=== PATIENT | male | born 1950 | race Caucasian/White ===

== ENCOUNTER → 2024-01-05 06:32 | Day surgery (SDC) | payer MEDICARE, OTHER, SELFPAY | LOC: GI 06:32 | PROVIDERS: ATTENDING PHYSICIAN Internal Medicine Gastroenterology | DX: Z12.11 Encounter for screening for malignant neoplasm of colon (principal); C18.2 Malignant neoplasm of ascending colon; K57.30 Diverticulosis of large intestine without perforation or abscess without bleeding; K64.8 Other hemorrhoids; Z86.010 Personal history of colon polyps; Z15.09 Genetic susceptibility to other malignant neoplasm | CPT/HCPCS: 45385; 45381; 88305; 88342 ==

== ENCOUNTER → 2024-05-19 07:30 | Outpatient (REF) | payer MEDICARE, OTHER, SELFPAY | LOC: HWRAD 07:30 | PROVIDERS: ATTENDING PHYSICIAN Student in an Organized Health Care Education/Training Program; FAMILY PHYSICIAN Family Medicine | DX: M19.071 Primary osteoarthritis, right ankle and foot (principal) | CPT/HCPCS: 73700 ==

== ENCOUNTER → 2024-06-16 06:32 | Outpatient (REF) | payer MEDICARE, OTHER, SELFPAY ==
[2024-06-16 08:46] LABS: Hematocrit 37.1 % (39.0-52.0); Hemoglobin 12.4 g/dL (13.0-18.0); Mean Corp Hgb Conc. 33.4 g/dL (33.0-37.0); Mean Corpuscular Hgb 28.9 pg (27.0-31.0); Mean Corpuscular Volume 86.5 fL (80.0-94.0); Mean Platelet Volume 12.6 fL (7.4-10.4); Platelet Count 164 10^3/uL (130-400); Red Blood Cell Count 4.29 10^6/uL (4.70-6.10); Red Cell Dist. Width 14.2 % (11.5-14.5); White Blood Cell Count 7.2 10^3/uL (4.8-10.8)
[2024-06-16 10:28] LABS: Blood Urea Nitrogen 26 mg/dl (9-20); Calcium 9.5 mg/dl (8.4-10.2); Carbon Dioxide 27 mmol/L (22-30); Chloride 108 mmol/L (98-107); Glucose 82 mg/dl (70-99); Sodium 147 mmol/L (135-145); eGFR > 60.00
== END ==
LOC: SDSPAT 06:32
PROVIDERS: ATTENDING PHYSICIAN Student in an Organized Health Care Education/Training Program; FAMILY PHYSICIAN Family Medicine
DX: Z01.818 Encounter for other preprocedural examination (principal)
CPT/HCPCS: 80048; 85027

== ENCOUNTER 2024-07-18 06:16 | Day surgery (SDC) | payer MEDICARE, OTHER, SELFPAY ==
[2024-06-16 10:37] VITALS: BMI 27.7
[2024-07-18] VITALS (9 sets, daily range): BP systolic 116–166; BP diastolic 71–91; BMI 27.7
[2024-07-18] MEDS: CELEBREX 200 MG PO (07:43)
[2024-07-18] MEDS: TYLENOL 1000 MG PO (07:44)
[2024-07-18] MEDS: NORMOSOL-R/PLASMALYTE-A 1000 IV (07:44)
[2024-07-18] MEDS: SUBLIMAZE 50 MCG IV (11:55)
[2024-07-18] MEDS: SUBLIMAZE 25 MCG IV (12:06)
[2024-07-18] MEDS: ROXICODONE 5 MG PO (13:33)
== END 2024-07-18 14:00 | disposition home or self-care (01) ==
LOC: SDS 06:16
PROVIDERS: ATTENDING PHYSICIAN Student in an Organized Health Care Education/Training Program; FAMILY PHYSICIAN Family Medicine
DX: M19.071 Primary osteoarthritis, right ankle and foot (principal)
CPT/HCPCS: 27702; 28289; 73610; 76000; C1713; C1776

== ENCOUNTER 2025-09-04 06:17 | Day surgery (SDC) | payer MEDICARE, OTHER, SELFPAY | END 2025-09-04 11:37 | disposition home or self-care (01) | LOC: GI 06:17 | PROVIDERS: ATTENDING PHYSICIAN Internal Medicine Gastroenterology | DX: Z12.11 Encounter for screening for malignant neoplasm of colon (principal); K64.8 Other hemorrhoids; K57.30 Diverticulosis of large intestine without perforation or abscess without bleeding; K44.9 Diaphragmatic hernia without obstruction or gangrene; D12.2 Benign neoplasm of ascending colon; K63.5 Polyp of colon; K31.7 Polyp of stomach and duodenum; K31.89 Other diseases of stomach and duodenum; Z15.060 Genetic susceptibility to colorectal cancer; Z15.09 Genetic susceptibility to other malignant neoplasm; Z85.038 Personal history of other malignant neoplasm of large intestine | CPT/HCPCS: 45380; 43239; 88305; 88342 ==